=== PATIENT | male | born 1980 | race Caucasian/White ===

== ENCOUNTER 2016-08-10 14:39 | Emergency (ER) | payer SELFPAY ==
[2016-08-10] MEDS ORDERED: Ketorolac Tromethamine 30 MG/ML VIAL ONE (14:49)
[2016-08-10] MEDS ORDERED: Ondansetron HCl/PF 4 MG/2 ML Vial ONE (14:49)
[2016-08-10 15:12] LABS: ALT (SGPT) 21 U/L (8-55); AST (SGOT) 18 U/L (5-34); Albumin 5.4 g/dL (3.5-5.0); Alkaline Phosphatase 103 U/L (40-150); Anion Gap 29 mmol/L (10-20); BUN (Urea Nitrogen) 18 mg/dL (8.9-20.6); Bilirubin, Total 0.7 mg/dL (0.2-1.2); Calc. Creatinine Clearance 0 mL/min (70-130); Calcium 10.8 mg/dL (7.8-10.44); Carbon Dioxide 16 mmol/L (22-29); Chloride 101 mmol/L (98-107); Estimated GFR-MDRD 53; Globulin 3.9 g/dL (2.4-3.5); Glucose 172 mg/dL (70-105); Lipase 24 U/L (8-78); Potassium 3.2 mmol/L (3.5-5.1); Protein, Total 9.3 g/dL (6.0-8.3); Sodium 143 mmol/L (136-145)
[2016-08-10 15:13] LABS: Band 8 % (5-11); Hemoglobin 17.1 g/dL (14.0-18.0); Lymphocytes 6 % (21-51); MDiff Complete? YES; Mean Corpuscular HGB CONC 33.9 g/dL (32.0-36.0); Mean Corpuscular Hemoglobin 29.8 pg (27.0-31.0); Mean Platelet Volume 9.9 fL (7.4-10.4); Monocytes 2 % (0-10); Neutrophil 84 % (42-75); Platelet Count 327 thou/uL (130-400); RBC Distribution Width 12.4 % (11.5-14.5); Red Blood Cell (RBC) Count 5.74 mill/uL (4.70-6.10); White Blood Cell (WBC) Count 26.3 thou/uL (4.8-10.8)
--- NOTE | 2016-08-10 15:14 | RAD ---
CHEST 1 VIEW: Date: 08/10/16 HISTORY: Emergency exam. COMPARISON: CT chest/abdomen/pelvis from 2014. FINDINGS: Lungs are clear. No pneumothorax or effusion. Cardiac silhouette and mediastinal contours are normal . Gastric air bubble is seen. IMPRESSION: No acute cardiopulmonary process. POS: H
[2016-08-10] MEDS ORDERED: Prochlorperazine 10 MG/2 ML VIAL ONE (15:39)
--- NOTE | 2016-08-10 16:02 | RAD ---
ABDOMEN 1 VIEW: Date: 08/10/16 HISTORY: Nausea and vomiting. COMPARISON: Abdomen and pelvis CT dated 12/24/15. FINDINGS: There are five non-rib bearing lumbar-type vertebrae. No dilated air-filled loops of large or small bowel. Evaluation for free air is limited by upright e xam. No calcifications are seen projecting over the renal shadows. 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 IMPRESSION: 1. No acute intra-abdominal process on this single view abdomen radiograph. 2. 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 POS: [facility]
[2016-08-10] MEDS ORDERED: Pantoprazole 40 MG VIAL ONE (16:08)
[2016-08-10 16:52] LABS: #Basophils 0.1 thou/uL (0.0-0.2); #Neutrophils 22.4 thou/uL (1.40-6.50); %Basophils 0.4 % (0.0-1.0); %Eosinophils 0.1 % (0.0-10.0); %Lymphocytes 4.2 % (21.0-51.0); %Monocytes 3.9 % (0.0-10.0); %Neutrophils 91.5 % (42.0-75.0); Hemoglobin 15.2 g/dL (14.0-18.0); Mean Corpuscular HGB CONC 33.9 g/dL (32.0-36.0); Mean Corpuscular Hemoglobin 29.7 pg (27.0-31.0); Mean Corpuscular Volume 87.8 fl (80.0-94.0); Mean Platelet Volume 9.2 fL (7.4-10.4); Platelet Count 273 thou/uL (130-400); RBC Distribution Width 12.2 % (11.5-14.5); Red Blood Cell (RBC) Count 5.13 mill/uL (4.70-6.10); White Blood Cell (WBC) Count 24.5 thou/uL (4.8-10.8)
[2016-08-10 16:55] LABS: Blood, Urine Negative (Negative); Clarity Clear (Clear); Glucose, Urine (Dipstick) Negative (Negative); Leukocyte Negative (Negative); Nitrite Negative (Negative); Protein, Urine (Dipstick) > or equal to 300 mg/dL (Neg-Trace); pH, Urine 7.5 (5.0-9.0)
[2016-08-10 16:58] LABS: Lactic Acid 3.3 mmol/L (0.5-2.2)
[2016-08-10 17:02] LABS: Bilirubin Negative (Negative)
[2016-08-10 17:02] LABS: Anion Gap 21 mmol/L (10-20); BUN (Urea Nitrogen) 18 mg/dL (8.9-20.6); Calc. Creatinine Clearance 0 mL/min (70-130); Calcium 9.5 mg/dL (7.8-10.44); Carbon Dioxide 20 mmol/L (22-29); Chloride 104 mmol/L (98-107); Estimated GFR-MDRD 69; Glucose 109 mg/dL (70-105); Potassium 3.7 mmol/L (3.5-5.1); Sodium 141 mmol/L (136-145)
[2016-08-10 17:03] LABS: Bacteria/HPF None Seen HPF (None Seen); RBC/HPF 0-3 HPF (0-3); Squamous Epithelial 0-3 HPF (0-3); WBC/HPF 0-3 HPF (0-3)
[2016-08-10 17:10] LABS: Amphetamine Not Detected (NotDetected); Barbiturates Screen Not Detected (NotDetected); Benzodiazepine Screen Not Detected (NotDetected); Cocaine Metabolite Screen Not Detected (NotDetected); Medtox Control Line Valid? VALID (VALID); Methadone Not Detected (NotDetected); Methamphetamine Not Detected (NotDetected); Opiate Screen Detected (NotDetected); Oxycodone Screen Not Detected (NotDetected); Phencyclidine (PCP) Not Detected (NotDetected); THC/Cannabinoid Screen Detected (NotDetected); Tricyclic Screen Detected (NotDetected)
--- NOTE | 2016-08-10 17:10 | CT ---
CT ABDOMEN AND PELVIS WITH CONTRAST 08/10/16 HISTORY: Nausea and vomiting. COMPARISON: 12/24/15 FINDINGS: The lung bases are clear. No pneumothorax or effusion. Moderate sized sliding hiatal hernia. The liver and gallbladder are unremarkable. Spleen, pancreas, adrenal glands are all normal. Aortoiliac contour is normal. No free intraperitoneal gas or fluid. The appendix is not definitively visualized although there are no secondary signs of acute appendici tis. There may be a small remnant of appendix in the retrocecal area seen on series 2, image 47. No significant inguinal hernia. No ventral hernia. The skeleton is unremarkable. IMPRESSION: 1. No acute inflammatory process in the abdomen or pelvis. 2. Mild diverticular disease without active inflammation. 3. Moderate sized sliding hiatal hernia with distal esophageal thickening concerning for esopha gitis. POS: MAR
== END 2016-08-10 18:11 | disposition home or self-care (01) ==
LOC: BURERS 14:39
DX: K52.9 Noninfective gastroenteritis and colitis, unspecified (principal); E86.0 Dehydration; F31.9 Bipolar disorder, unspecified; F17.210 Nicotine dependence, cigarettes, uncomplicated; Z79.899 Other long term (current) drug therapy
CPT/HCPCS: 36415; 71010; 74000; 74177; 80053; 80306; 80307; 81003; 81015; 83605; 83690; 84443; 85025; 93005; 96361; 96374; 96375; C9113; J0780; J1885; J2270; J2405

== ENCOUNTER 2017-11-30 09:25 | Emergency (ER) | payer SELFPAY ==
[2017-11-30] MEDS ORDERED: Ondansetron HCl/PF 4 MG/2 ML Vial ONE (09:48)
[2017-11-30] MEDS ORDERED: Pantoprazole 40 MG VIAL ONE (09:48)
[2017-11-30] MEDS ORDERED: Prochlorperazine 10 MG/2 ML VIAL ONE (10:40)
[2017-11-30 13:47] LABS: #Eosinphils 0.1 thou/uL (0.0-0.7); #Lymphocytes 0.6 thou/uL (1.20-3.40); #Monocytes 0.6 thou/uL (0.11-0.59); #Neutrophils 9.6 thou/uL (1.40-6.50); %Basophils 0.4 % (0.0-1.0); %Eosinophils 0.5 % (0.0-10.0); %Lymphocytes 5.7 % (21.0-51.0); %Monocytes 5.4 % (0.0-10.0); ALT (SGPT) 22 U/L (8-55); AST (SGOT) 17 U/L (5-34); Alkaline Phosphatase 70 U/L (40-150); Anion Gap 14 mmol/L (10-20); BUN (Urea Nitrogen) 10 mg/dL (8.9-20.6); Bilirubin, Total 0.9 mg/dL (0.2-1.2); Calc. Creatinine Clearance 0 mL/min (70-130); Calcium 10.5 mg/dL (7.8-10.44); Carbon Dioxide 27 mmol/L (22-29); Chloride 102 mmol/L (98-107); Estimated GFR-MDRD 72; Glucose 119 mg/dL (70-105); Hemoglobin 15.8 g/dL (14.0-18.0); Lipase 36 U/L (8-78); Mean Corpuscular HGB CONC 33.2 g/dL (32.0-36.0); Mean Corpuscular Hemoglobin 29.7 pg (27.0-31.0); Mean Corpuscular Volume 89.4 fL (78.0-98.0); Mean Platelet Volume 10.1 fL (7.4-10.4); Platelet Count 199 thou/uL (130-400); Potassium 3.7 mmol/L (3.5-5.1); RBC Distribution Width 12.1 % (11.5-14.5); Red Blood Cell (RBC) Count 5.33 mill/uL (4.70-6.10); Sodium 139 mmol/L (136-145); White Blood Cell (WBC) Count 10.9 thou/uL (4.8-10.8)
== END 2017-11-30 11:15 | disposition home or self-care (01) ==
LOC: BURERS 09:25
DX: R11.2 Nausea with vomiting, unspecified (principal)
CPT/HCPCS: 80053; 83690; 85025; 96361; 96374; 96375; C9113; J0780; J2405

== ENCOUNTER 2017-12-30 16:21 | Emergency (ER) | payer SELFPAY | END 2017-12-30 16:50 | disposition home or self-care (01) | LOC: BURERS 16:21 | DX: L02.215 Cutaneous abscess of perineum (principal); F17.210 Nicotine dependence, cigarettes, uncomplicated; F31.9 Bipolar disorder, unspecified | CPT/HCPCS: 46050 ==

== ENCOUNTER 2018-08-25 11:25 | Emergency (ER) | payer SELFPAY ==
[~2018-08-25 11:25] MED LIST: Iopamidol 370 76% 125 ML VIAL FS ONE
[2018-08-25] MEDS ORDERED: Fentanyl 100 MCG/2 ML VIAL ONE ×2 (11:36→12:09)
[2018-08-25] MEDS ORDERED: Ondansetron PF 4 MG/2 ML Vial ONE (11:37)
[2018-08-25 12:03] LABS: #Basophils 0.1 thou/uL (0.0-0.2); #Eosinphils 0.1 thou/uL (0.0-0.7); #Monocytes 0.5 thou/uL (0.11-0.59); #Neutrophils 8.5 thou/uL (1.40-6.50); %Basophils 0.8 % (0.0-1.0); %Eosinophils 0.9 % (0.0-10.0); %Lymphocytes 18.2 % (21.0-51.0); %Monocytes 4.8 % (0.0-10.0); %Neutrophils 75.4 % (42.0-75.0); Hemoglobin 13.7 g/dL (14.0-18.0); Mean Corpuscular HGB CONC 31.6 g/dL (32.0-36.0); Mean Corpuscular Hemoglobin 30.3 pg (27.0-31.0); Mean Corpuscular Volume 95.7 fL (78.0-98.0); Platelet Count 257 thou/uL (130-400); RBC Distribution Width 13.2 % (11.5-14.5); Red Blood Cell (RBC) Count 4.54 mill/uL (4.70-6.10); White Blood Cell (WBC) Count 11.3 thou/uL (4.8-10.8)
[2018-08-25 12:16] LABS: ALT (SGPT) 19 U/L (8-55); Albumin 4.7 g/dL (3.5-5.0); Alcohol Less than 10 mg/dL (Less than 10); Alkaline Phosphatase 83 U/L (40-150); Anion Gap 20 mmol/L (10-20); BUN (Urea Nitrogen) 15 mg/dL (8.9-20.6); Bilirubin, Total 0.5 mg/dL (0.2-1.2); Calc. Creatinine Clearance 0 mL/min (70-130); Calcium 9.9 mg/dL (7.8-10.44); Carbon Dioxide 18 mmol/L (22-29); Chloride 104 mmol/L (98-107); Estimated GFR-MDRD 64; Globulin 2.9 g/dL (2.4-3.5); Glucose 122 mg/dL (70-105); Potassium 4.7 mmol/L (3.5-5.1); Protein, Total 7.6 g/dL (6.0-8.3); Sodium 137 mmol/L (136-145)
[2018-08-25 12:25] LABS: AST (SGOT) 32 U/L (5-34)
[2018-08-25] MEDS ORDERED: Morphine 4 MG/ML VIAL ONE (13:03)
[2018-08-25] MEDS ORDERED: diphenhydrAMINE 50 MG/ML VIAL ONE (13:03)
[2018-08-25] MEDS ORDERED: Bacitracin 1 PK ONE (13:27)
[2018-08-25] MEDS ORDERED: Ketorolac Tromethamine 30 MG/ML VIAL ONE (13:59)
--- NOTE | 2018-08-25 14:31 | CT ---
CT OF THE BRAIN WITHOUT CONTRAST: DATE: 08/25/2018. FINDINGS: The ventricles are normal in size with no shift. No intracranial bleeding or extraaxial hematoma was seen. There is no sign of mass, edema, or stroke. The skull appears intact with no skull fractures. There is a small amount of mucosal thickening in t he sphenoid sinus on the left and the maxillary sinus on the right. A little bit of thickening is pr obably represent in the left maxillary sinus as well. No acute fractures were identified in the faci al region. A small dip in the anterior cortex of the right maxilla anteriorly does not appear to be an acute injury. There is no sign of orbital blowout fractures. IMPRESSION: 1. No acute intracranial findings. 2. Findings of chronic sinusitis. POS: HOME
--- NOTE | 2018-08-25 14:34 | CT ---
CT CERVICAL SPINE: DATE: 12/26/2018. FINDINGS: Spiral CT of the cervical spine was done following trauma. Axial slices were acquired followed by co rayshawn and sagittal reconstructions. No fracture, dislocation, or acute bony change was seen. The C1 to dens distance is normal and the s oft tissues are normal in thickness. The disk spaces are normal in height and alignment is normal. There was no evidence of central canal or foraminal stenosis. IMPRESSION: No acute traumatic findings. POS: HOME
--- NOTE | 2018-08-25 14:39 | CT ---
CT OF THE CHEST AND ABDOMEN AND PELVIS WITH CONTRAST: DATE: 08/25/2018. FINDINGS: Spiral CT of the chest, abdomen, and pelvis was done following a fall. Axial slices were acquired, t hen coronal and sagittal reconstructions were done through the region. CT OF THE THORAX: There is no sign of mediastinal hematoma. The aorta appears normal. No mass or adenopathy was seen. There is no sign of pericardial effusion. The lungs are fully inflated and clear. There is no pne umothorax or pleural effusion. No gross fractures were identified. CT OF THE ABDOMEN AND PELVIS: The liver, spleen, pancreas, adrenal glands, gallbladder, kidneys, and abdominal aorta appear unremar kable. There is no sign of laceration or hematoma in any major organ. The bowel shows no distention or other sign of obstruction. There is no free air or free fluid. CT of the pelvis shows no pelvic masses, hematomas, or other traumatic findings. The hips and bony p abena appear intact. The thoracolumbar spine showed no fracture. IMPRESSION: No acute findings in the chest, abdomen, or pelvis. Results from all scans discussed with Dr. Marrufo at 1215 on 08/25/2018. CODE CR POS: HOME
--- NOTE | 2018-08-25 14:40 | RAD ---
RIGHT ANKLE 3 VIEWS: DATE: 08/25/2018. FINDINGS: A fracture is seen extending mostly vertically through the calcaneus with some displacement of the po sterior portion of the bone. The malleoli appear grossly intact. The tibiotalar joint appears intac t. IMPRESSION: Calcaneal fracture. POS: HOME
[2018-08-25 14:42] LABS: Bilirubin Negative (Negative); Blood, Urine Negative (Negative); Clarity Clear (Clear); Glucose, Urine (Dipstick) Negative (Negative); Leukocyte Negative (Negative); Nitrite Negative (Negative); Protein, Urine (Dipstick) Negative (Neg-Trace); Urobilinogen 0.2 mg/dL (Less than 2)
--- NOTE | 2018-08-25 14:43 | RAD ---
LEFT WRIST 3 VIEWS: DATE: 08/25/2018. FINDINGS: Comparison is made with an 09/20/2013 study. An ORIF of radial and ulnar shaft fractures are evident a t the margin of the films. The area looks to be well healed. Today's exam shows a longitudinal frac ture of the distal radius extending into the radiocarpal joint. There appears to be little displacem ent. The distal ulna appears intact, as does the carpal bones. While not optimally seen, there is a fracture of the 5th metacarpal that appears most likely old. IMPRESSION: Acute fracture of the distal radius with extension into the radiocarpal joint. CODE T POS: HOME
[2018-08-25] MEDS ORDERED: Adacel (T-DAP) 0.5 ML SYRINGE ONE (15:07)
== END 2018-08-25 15:42 | disposition home or self-care (01) ==
LOC: BURERS 11:25
DX: S52.502A Unspecified fracture of the lower end of left radius, initial encounter for closed fracture (principal); S92.001A Unspecified fracture of right calcaneus, initial encounter for closed fracture; S00.83XA Contusion of other part of head, initial encounter; S41.112A Laceration without foreign body of left upper arm, initial encounter; S41.111A Laceration without foreign body of right upper arm, initial encounter; F31.9 Bipolar disorder, unspecified; F17.210 Nicotine dependence, cigarettes, uncomplicated; Z79.899 Other long term (current) drug therapy
CPT/HCPCS: 28400; 29125; 70450; 71260; 72125; 74177; 80053; 80307; 81003; 85025; 90471; 90715; 94760; 96361; 96374; 96375; 96376; J1200; J1885; J2270; J2405; J3010; Q9967

== ENCOUNTER 2018-10-16 05:44 | Emergency (ER) | payer SELFPAY ==
[2018-10-16] MEDS ORDERED: Ondansetron ODT 4 MG TAB ONE (06:00)
== END 2018-10-16 06:15 | disposition home or self-care (01) ==
LOC: BURERS 05:44
DX: R11.2 Nausea with vomiting, unspecified (principal); F31.9 Bipolar disorder, unspecified; F17.210 Nicotine dependence, cigarettes, uncomplicated; Z79.899 Other long term (current) drug therapy
CPT/HCPCS: 99283; Q0162